=== PATIENT | male | born 1995 | race Caucasian/White ===

== ENCOUNTER → 2016-07-17 | Outpatient (CLI) | payer BC | LOC: OPSV 00:12 → EROP 00:12 | DX: Z03.89 Encounter for observation for other suspected diseases and conditions ruled out (principal) | CPT/HCPCS: 71010; 87081; 87880; 96372; J1100 ==

== ENCOUNTER → 2020-10-05 | Outpatient (CLI) | payer BC ==
[2020-10-05 16:51] LABS: HEMOGLOBIN 15.5 gm/dl (14.0-17.5); RED BLOOD COUNT 5.33 M/UL (4.20-5.50); WHITE BLOOD COUNT 8.6 K/UL (4.5-11.0)
[2020-10-05 17:14] LABS: BUN/CREATININE RATIO 17 (0-10)
[2020-10-07 07:11] LABS: VITAMIN D, 25-HYDROXY 16.4 ng/mL (30.0-100.0)
[2020-10-07 08:39] LABS: TESTOSTERONE, SERUM 234 ng/dL (264-916)
== END ==
LOC: LAB 14:32
PROVIDERS: Nurse Practitioner Family
DX: R53.83 Other fatigue (principal); E53.8 Deficiency of other specified B group vitamins; E55.9 Vitamin D deficiency, unspecified; E66.9 Obesity, unspecified; F41.9 Anxiety disorder, unspecified; E03.9 Hypothyroidism, unspecified
CPT/HCPCS: 36415; 80053; 80061; 82607; 82746; 83036; 84403; 84443; 85025; 85027

== ENCOUNTER → 2021-02-13 | Day surgery (SDC) | payer BC ==
[~2021-02-13] MED LIST: ALLERGY RELIEF5 MG PO; CELEXA 20MG TAB20 MG PO; FLONASE 0.05% N16 GM; LEVOTHYROXINE25 MC1 PO; PEPCID20 MG PO; PEPCID40 MG PO; PROAIR DIGIHAL90 MCG INH; PROTONIX40 MG PO; VITAMIN B-121000 MC3 PO; VRAYLAR1.5 MG PO
== END | disposition home or self-care (01) ==
LOC: OR 06:16
DX: K31.9 Disease of stomach and duodenum, unspecified (principal); K29.71 Gastritis, unspecified, with bleeding; K21.00 Gastro-esophageal reflux disease with esophagitis, without bleeding; F32.A Depression, unspecified; E03.9 Hypothyroidism, unspecified; G47.33 Obstructive sleep apnea (adult) (pediatric); F17.210 Nicotine dependence, cigarettes, uncomplicated; K42.9 Umbilical hernia without obstruction or gangrene; Z20.822 Contact with and (suspected) exposure to COVID-19; Z88.1 Allergy status to other antibiotic agents; J45.909 Unspecified asthma, uncomplicated
CPT/HCPCS: J2704; J7120

== ENCOUNTER → 2021-02-28 | Day surgery (SDC) | payer BC ==
[~2021-02-28] MED LIST changes: +COLACE100 MG PO; +HYDROCODON-ACE1 EAC2 PO
== END | disposition home or self-care (01) ==
LOC: OR 05:43
DX: K42.0 Umbilical hernia with obstruction, without gangrene (principal); K58.9 Irritable bowel syndrome, unspecified; K21.9 Gastro-esophageal reflux disease without esophagitis; E03.9 Hypothyroidism, unspecified; F41.9 Anxiety disorder, unspecified; F32.A Depression, unspecified; J45.909 Unspecified asthma, uncomplicated; G47.33 Obstructive sleep apnea (adult) (pediatric); G47.19 Other hypersomnia; E66.01 Morbid (severe) obesity due to excess calories; F17.210 Nicotine dependence, cigarettes, uncomplicated; Z79.52 Long term (current) use of systemic steroids; Z79.51 Long term (current) use of inhaled steroids; Z79.899 Other long term (current) drug therapy; Z20.822 Contact with and (suspected) exposure to COVID-19
CPT/HCPCS: J0690; J1100; J2001; J2250; J2270; J2405; J2704; J2710; J3010; J7120